=== PATIENT | female | born 2000 | race Caucasian/White ===

== ENCOUNTER 2018-08-08 09:31 | Emergency (ER) | payer BC ==
--- NOTE | 2018-08-08 10:23 | RAD ---
Indication: Cough. 2 views of the chest including dual energy PA views demonstrate no mediastinal shift. Heart is of normal size and configuration. Lung esquivel are clear. IMPRESSION: No active cardiopulmonary disease is noted.
--- NOTE | 2018-08-08 10:31 | ED ---
Throat Pain/Nasal Congestion - HPI Summary HPI Summary: Patient is a 18 y/o F w/ c/o throat pain, fatigue, AYERS, abdominal pain, throat swelling, productive cough w/ white phlegm, decreased appetite, and white spots in her throat. Sx onset three days ago w/ the exception of cough, which onset last night. The patient reports that she had a negative strep test the urgent care yesterday and was told that she has infectious mononucleosis. She was given amoxicllin, took one dose yesterday. Patient denies presence of rashes. She was instructed to follow up with PCP but states she could not get in to see her until 08/16, which led the patient to come to the ED. On triage, pain is rated 7/10. Home medications and allergies are reviewed. Patient denies PMHx, PSHx and FMHx as well as any drug use. LNMP was 07/19/18. - History of Current Complaint Chief Complaint: EDThroatPain Time Seen by Provider: 08/08/18 09:52 Hx Obtained From: Patient Onset/Duration: Lasting Days - one day cough, three days all other Sx, Still Present Severity: Severe - 7/10 Cough: Sputum Appears - white colored - Allergies/Home Medications Allergies/Adverse Reactions: Allergies Allergy/AdvReac Type Severity Reaction Status Date / Time No Known Allergies Allergy Unverified 08/08/18 09:41 PMH/Surg Hx/FS Hx/Imm Hx Sensory History: Denies: Hx Legally Blind, Hx Deafness Opthamlomology History: Denies: Hx Legally Blind EENT History: Denies: Hx Deafness Infectious Disease History: No Infectious Disease History: Denies: History Other Infectious Disease, Traveled Outside the [place] in Last 30 Days - Family History Known Family History: Negative: Diabetes - Social History Alcohol Use: None Substance Use Type: Reports: None Smoking Status (MU): Never Smoked Tobacco Review of Systems Positive: Sore Throat - throat pain , Other - throat swelling, white spots in throat Positive: Cough - productive, white phlegm Positive: Abdominal Pain, Other - decreased appetite Negative: Rash Positive: Headache All Other Systems Reviewed And Are Negative: Yes Physical Exam - Summary Physical Exam Summary: VITAL SIGNS: Reviewed. GENERAL: Patient is a well-developed and nourished female who is lying comfortable in the stretcher. Patient is not in any acute respiratory distress. HEAD AND FACE: No signs of trauma. No ecchymosis, hematomas or skull depressions. No sinus tenderness. EYES: PERRLA, EOMI x 2, No injected conjunctiva, no nystagmus. EARS: Hearing grossly intact. Ear canals and tympanic membranes are within normal limits. MOUTH: Oropharynx within normal limits. NECK: Supple, trachea is midline, no adenopathy, no JVD, no carotid bruit, no c- spine tenderness, neck with full ROM. CHEST: Symmetric, no tenderness at palpation LUNGS: Clear to auscultation bilaterally. No wheezing or crackles. CVS: Regular rate and rhythm, S1 and S2 present, no murmurs or gallops appreciated. ABDOMEN: Soft, non-tender. No signs of distention. No rebound no guarding, and no masses palpated. Bowel sounds are normal. EXTREMITIES: FROM in all major joints, no edema, no cyanosis or clubbing. NEURO: Alert and oriented x 3. No acute neurological deficits. Speech is normal and follows commands. SKIN: Dry and warm Triage Information Reviewed: Yes Vital Signs On Initial Exam: Initial Vitals Temp Pulse Resp BP Pulse Ox 97.8 F 93 15 101/59 100 08/08/18 09:40 08/08/18 09:40 08/08/18 09:40 08/08/18 09:40 08/08/18 09:40 Vital Signs Reviewed: Yes Diagnostics - Vital Signs Vital Signs Temp Pulse Resp BP Pulse Ox 08/08/18 09:40 97.8 F 93 15 101/59 100 - Laboratory Lab Statement: Any lab studies that have been ordered have been reviewed, and results considered in the medical decision making process. - Radiology CXR Xray Interpretation: No Acute Changes Radiology Interpretation Completed By: Radiologist - no active cardiopulmonary disease is noted; this report was reviewed by ED physician. Re-Evaluation - Re-Evaluation First Eval Re-Evaluation Time: 11:02 Change: Improved Comment: Findings and test results were discussed with the patient. Patient was instructed to return to the emergency room immediately if any of the symptoms return or worsens. Plan of care was discussed with the patient and understands and agrees. All questions were answered at patient satisfaction. There were no further complaints or concerns. Lung exam before discharge: CTA B/L. Good air exchange. No wheezing or crackles heard. CVS: S1 and S2 present. No murmurs appreciated. Patient is alert and oriented x 3. Patient is hemodynamically stable. Patient will be discharged home with follow up PCP in the next 2-3 days EENT Course/Dx - Course Assessment/Plan: This patient is a 18-year-old female who presents to the emergency Department with mother with chief complaint having sore throat. The patient reports that she had a negative strep test the urgent care yesterday, she was told that she has infectious mononucleosis and she was prescribed amoxicillin. She continues to have sore throat therefore she decided to come to the ER. She also reports a productive cough with white sputum. Rapid strep is negative. Chest x-ray shows no acute cardiopulmonary disease. Brown screen is negative. Therefore the patient will be discharged home with follow-up with primary care physician. I discussed all the findings and test results with the patient. Patient was instructed to return to the emergency room immediately if any of the symptoms return or worsens. Plan of care was discussed with the patient and understands and agrees. All questions were answered at patient satisfaction. There were no further complaints or concerns. Lung exam before discharge: CTA B/L. Good air exchange. No wheezing or crackles heard. CVS: S1 and S2 present. No murmurs appreciated. Patient is alert and oriented x 3. Patient is hemodynamically stable. Patient will be discharged home with follow up PCP in the next 2-3 days - Differential Diagnoses Differential Diagnoses: Govind's Angina, Otitis Externa, Otitis Media, Sinusitis , Tonsilitis, URI/Bronchitis - Diagnoses Provider Diagnoses: Pharyngitis Discharge - Sign-Out/Discharge Documenting (check all that apply): Patient Departure - discharge - Discharge Plan Condition: Stable Disposition: HOME Patient Education Materials: Pharyngitis (ED) Referrals: Anastasia Guadalupe MD [Medical Doctor] - 3 Days Additional Instructions: FOLLOW UP WITH PRIMARY CARE PHYSICIAN. RETURN TO ED FOR ANY NEW OR WORSENING SYMPTOMS. - Billing Disposition and Condition Condition: STABLE Disposition: Home - Attestation Statements Document Initiated by Scribe: Yes Documenting Scribe: Kd Live Provider For Whom Haroldo is Documenting (Include Credential): Jose Rogers MD Scribe Attestation: Kd Wong, scribed for Jose Rogers MD on 08/09/18 at 0813. Scribe Documentation Reviewed: Yes Provider Attestation: The documentation as recorded by the scribe, Kd Live accurately reflects the service I personally performed and the decisions made by me, Jose Rogers MD
[2018-08-08 11:46] VITALS: BP 106/62
== END 2018-08-08 11:44 | disposition home or self-care (01) ==
LOC: ED 09:31
DX: J02.9 Acute pharyngitis, unspecified (principal); R05 Cough; R51 Headache; R10.9 Unspecified abdominal pain; R21 Rash and other nonspecific skin eruption
CPT/HCPCS: 71046; 87651; 99281

== ENCOUNTER 2019-08-03 10:27 | Emergency (ER) | payer BC ==
--- NOTE | 2019-08-03 10:42 | ED ---
Upper Extremity Pain - HPI Summary HPI Summary: The patient is a 19 y/o F presenting to [facility] with a chief complaint of injured right fingers yesterday with gradual onset ecchymosis. The right second and third digits were injured while she was playing with her brother when her hand was punched into a wall by accident. There is tingling in the index finger, and there is decreased ROM in the fingers secondary to pain although she is able to move them. Currently, the aching pain is rated 7/10 in severity. The pain is aggravated by moving or touch, and she has used 200mg Ibuprofen last night at 2200 as well as ice to some relief. She denies any fever, chills, erythema of eyes, sore throat, CP, SOB, cough, dysuria, hematuria, rash, or dizziness. LNMP : 07/05/19. No PMHx. Nonsmoker, no EtOH, no substance use. Medications reviewed. Allergies noted. - History of Current Complaint Chief Complaint: EDExtremityUpper Stated Complaint: POSS BROKEN FINGERS PER PT Time Seen by Provider: 08/03/19 10:33 Hx Obtained From: Patient Hx Last Menstrual Period: 07/05/16 Mechanism Of Injury: Twisted - playing with brother Onset/Duration: Started Hours Ago - yesterday, Still Present Timing: Lasting Hours Severity Initially: Mild Severity Currently: Moderate Pain Location: Finger - right second and third fingers Character: Aching Aggravating Factor(s): Movement Alleviating Factor(s): Ice, OTC Meds - Ibuprofen Associated Signs & Symptoms: Positive: Bruising, Numbness/Tingling - in right index finger, Other - Positive: decreased ROM in fingers secondary to pain. Negative: chills, erythema of eyes, sore throat, cough, abd pain, rash, dizziness.. Negative: Fever, Chest Pain, SOB, Nausea, Vomiting - Allergies/Home Medications Allergies/Adverse Reactions: Allergies Allergy/AdvReac Type Severity Reaction Status Date / Time No Known Allergies Allergy Unverified 08/03/19 09:13 Home Medications: Home Medications Magnesium Oxide 500 mg PO DAILY 08/03/19 [History Confirmed 08/03/19] PMH/Surg Hx/FS Hx/Imm Hx Respiratory History: Denies: Hx Asthma Sensory History: Denies: Hx Legally Blind, Hx Deafness Opthamlomology History: Denies: Hx Legally Blind - Surgical History Surgical History: None Surgery Procedure, Year, and Place: none Infectious Disease History: No Infectious Disease History: Denies: History Other Infectious Disease, Traveled Outside the [place] in Last 30 Days - Family History Known Family History: Negative: Diabetes - Social History Alcohol Use: None Hx Substance Use: No Substance Use Type: Reports: None Hx Tobacco Use: No Smoking Status (MU): Never Smoked Tobacco Review of Systems Negative: Fever, Chills Negative: Erythema Negative: Sore Throat Negative: Chest Pain Negative: Shortness Of Breath, Cough Negative: Abdominal Pain, Vomiting, Nausea Negative: dysuria, hematuria Positive: Myalgia - pain in the right index and middle fingers, Decreased ROM - secondary to pain in index and middle fingers on right hand Positive: Bruising - right index and middle fingers. Negative: Rash Neurological: Other - Positive: tingling in the index finger. Negative: dizziness. All Other Systems Reviewed And Are Negative: Yes Physical Exam - Summary Physical Exam Summary: General: Well appearing, no distress Cardiovascular: Skin is well perfused Pulmonary: No respiratory distress, no tachypnea Abdomen: Non-distended Musculoskeletal: Ecchymosis over the proximal and middle phalanges at the joints of the pointer and middle finger, Unable to flex the fingers beyond the proximal phalangeal joint Skin: Warm, pink, dry Psych: Normal affect Neuro: A&Ox3 Triage Information Reviewed: Yes Vital Signs On Initial Exam: Initial Vitals Temp Pulse Resp BP Pulse Ox 97.9 F 74 15 116/80 99 08/03/19 10:30 08/03/19 10:30 08/03/19 10:30 08/03/19 10:30 08/03/19 10:30 Vital Signs Reviewed: Yes Diagnostics - Vital Signs Vital Signs Temp Pulse Resp BP Pulse Ox 08/03/19 10:30 97.9 F 74 15 116/80 99 - Laboratory Lab Statement: Any lab studies that have been ordered have been reviewed, and results considered in the medical decision making process. - Radiology R Hand XR Radiology Interpretation Completed By: Radiologist Summary of Radiographic Findings: Impression: 1. Negative for fracture or articular malalignment. Mild fusiform soft tissue swelling at the second and third fingers. ED physician has reviewed this report. Re-Evaluation - Re-Evaluation First Eval Re-Evaluation Time: 11:45 Comment: We discussed XR results and plan for discharge home. Course/Dx - Course Course Of Treatment: Pt is a 19 y/o F with cc of right second and third phalangeal injury with noted ecchymosis and decreased ROM of the fingers and tingling in the index finger onset yesterday following hitting her hand against a wall while playing with her brother. Upon physical exam, the patient exhibits ecchymosis over the proximal and middle phalanges at the joints of the pointer and middle finger with inability to flex the fingers beyond the proximal phalangeal joint. She declines any pain medication in the ED at this time as she states she has Ibuprofen at home that has relieved the pain. Right hand x- ray impression is negative for fracture or malalignment with noted swelling of the fingers. She will be discharged home with recommendation for using Ibuprofen and ice for pain relief. She is also advised to see her PCP and have repeat imaging taken if she continues to experience pain and swelling. She understands and agrees with this plan. - Diagnoses Provider Diagnoses: Finger sprain Discharge ED - Sign-Out/Discharge Documenting (check all that apply): Patient Departure - Patient will be discharged home. Patient Received Moderate/Deep Sedation with Procedure: No - Discharge Plan Condition: Good Disposition: HOME Patient Education Materials: Finger Sprain (ED) Forms: *Work Release Referrals: Noelle Patel NEWS ASSIGNMENT EDITOR [Primary Care Provider] - 3 Days Additional Instructions: Fracture is not completely ruled out, so if you continue to experiencing pain and swelling, repeat x-rays may be necessary. Use ice and Ibuprofen as needed for pain relief. Follow up with your primary care provider in 2-3 days. Return to the emergency department for any new or worsening symptoms. - Billing Disposition and Condition Condition: GOOD Disposition: Home - Attestation Statements Document Initiated by Haroldo: Yes Documenting Scribe: Carmen Gill Provider For Whom Haroldo is Documenting (Include Credential): MD Sean Drewibagustin Attestation: Carmen Wong scribed for Dr. Dalton Dixon MD on 08/11/19 at 1152. Scribe Documentation Reviewed: Yes Provider Attestation: The documentation as recorded by the Carmen elizondo accurately reflects the service I personally performed and the decisions made by me, Dr. Dalton Dixon MD Status of Scribe Document: Viewed
[2019-08-03 12:02] VITALS: BP 100/59
== END 2019-08-03 11:55 | disposition home or self-care (01) ==
LOC: ED 10:27
DX: S63.610A Unspecified sprain of right index finger, initial encounter (principal); S63.612A Unspecified sprain of right middle finger, initial encounter; W22.8XXA Striking against or struck by other objects, initial encounter; Y92.9 Unspecified place or not applicable
CPT/HCPCS: 99282